=== PATIENT | female | born 1955 | race Caucasian/White ===

== ENCOUNTER 2023-04-24 14:24 | Emergency (ER) | payer MEDICARE, SELFPAY ==
[2023-04-24] VITALS (72 sets, daily range): BP systolic 140–172; BP diastolic 72–102; PULSE 66–97; RESP 13–30; TEMP 36.3–36.7; O2SAT 96–100; BMI 19.2
--- NOTE | 2023-04-24 14:27 | DI.RAD.S_ITS ---
PROCEDURE: XR WRIST LT MIN 3V INDICATIONS: slip/fall, deformity to L wrist TECHNIQUE: 3 views of the wrist were acquired. COMPARISON: None. FINDINGS: Bones: Intra-articular radial styloid fracture with apex dorsal angulation. Scaphoid view: Not requested. Soft tissues: No suspicious soft tissue calcifications. IMPRESSION: Intra-articular, angulated radial styloid fracture. Dictated by: Scott Ochoa M.D. on 04/24/2023 at 14:56 Approved by: Scott Ochoa M.D. on 04/24/2023 at 14:57
[2023-04-24] MEDS: MORPHINE 4 MG/ML INJ IV (16:01)
--- NOTE | 2023-04-24 18:35 | ED_ITS ---
HPI - General Adult General Chief complaint: Trauma Stated complaint: GLF Time Seen by Provider: 04/24/23 18:01 Source: patient and EMS Mode of arrival: EMS Limitations: no limitations History of Present Illness HPI narrative: Patient is a 67-year-old female who arrives for evaluation of a left wrist she states she tripped and on an outstretched hand. Had immediate pain in the left wrist. No other injuries from the event. Almost immediately after where she had a presyncopal episode because of the discomfort. She is not on anticoagulation. Related Data Previous Rx's Medication Instructions Recorded hydrocodone 5 mg-acetaminophen 325 1 tab PO Q4-6H PRN pain #20 tabs 04/24/23 mg tablet Allergies Allergy/AdvReac Type Severity Reaction Status Date / Time Penicillins [PENICILLINS] Allergy Mild Verified 04/24/23 14:29 Review of Systems Constitutional Constitutional: Reports system reviewed and no additional complaints, except as documented Musculoskeletal Musculoskeletal: Reports system reviewed and no additional complaints, except as documented Integumentary/Breasts Skin/Breast: Reports system reviewed and no additional complaints, except as documented Neurologic Neurologic: Reports system reviewed and no additional complaints, except as documented Hematologic/Lymphatic On Anticoagulants: No Patient History Social History Smoking Status: Never smoker Smoking Status: Never smoker alcohol intake frequency: 0-2 drinks per day Substance Use Type: does not use Exam Initial Vital Signs Initial Vital Signs: Vital Signs Temperature 98.1 F 04/24/23 14:24 Pulse Rate 68 04/24/23 14:24 Respiratory Rate 14 04/24/23 14:24 Blood Pressure 156/72 H 04/24/23 14:24 Pulse Oximetry 99 04/24/23 14:24 Oxygen Delivery Method Room Air 04/24/23 14:24 HENNM Head: normal to inspection and normocephalic Cardio Pulses: radial pulses present on the left Skin General: no rashes or lesions noted Neuro Sensory Exam: no sensory deficits noted Extrem Other: Obvious deformity to left wrist. Left elbow and left shoulder unremarkable. Other musculoskeletal exam is unremarkable. Procedures Orthopedic Fracture Reduction Fracture #1: Time Out Performed: Yes Side: left Fracture Reduction Location: radius and ulna Analgesia: procedural sedation Technique: direct manipulation Post Reduction X-rays Demonstrate: acceptable reduction Post-reduction neuro exam: no change Post-reduction vascular exam: no change Splint Applied: Yes Patient Tolerated Procedure: Well Orthopedic Splinting/Casting Injury #1: Side: left Upper Extremity Injury Location: forearm Upper Extremity Immobilizer: sugar tong splint Other Orthopedic Equipment: other (Sling) Post splinting neuro exam: no change Post splinting vascular exam: no change Placed by: Provider Procedural Sedation Consent signed: Yes Time out performed: Yes Indication: fracture/dislocation reduction ASA Class: II Mallampati Airway Classification: Class II Preparation: waterproof bag sewer applied, pulse oximeter, capnometry used, supplemental O2 applied, suction/airway equipment at bedside and IV secured IV Propofol dose (mg): 70 Intraservice time/total sedation time (min): 15 ED Sedation Level: Moderate (Concious) Patient Tolerated Procedure: Well Complications: none Course Orders Ordered: ED Orders 04/24/23 20:03 XR wrist LT min 3V Stat Discontinued Medications Hydrocodone Bitart/Acetaminophen (Hydrocodone/Acet 5/325 Prepack) 1 bottle MISC SEEINSTR ONE Stop: 04/24/23 20:48 Last Admin: 04/24/23 20:55 Dose: 1 bottle Documented By: MOY Sodium Chloride (Normal Saline 0.9%) 1,000 mls @ 125 mls/hr IV CONT MARIA G Last Infusion: 04/24/23 21:18 Dose: 0 mls/hr Documented By: Admin: 04/24/23 19:20 Dose: 125 mls/hr Documented By: LYN Morphine Sulfate (Morphine 4 Mg/Ml Inj) 4 mg IV NOW ONE Stop: 04/24/23 15:56 Last Admin: 04/24/23 16:01 Dose: 4 mg Documented By: LYN Ondansetron HCl (Ondansetron 4 Mg/2 Ml Inj) 4 mg IV NOW ONE Stop: 04/24/23 19:13 Last Admin: 04/24/23 19:20 Dose: 4 mg Documented By: LYN Propofol (Propofol 200 Mg/20 Ml Vial) 100 mg IV NOW ONE Stop: 04/24/23 18:37 Last Admin: 04/24/23 20:29 Dose: 70 mg Documented By: MYO Vital Signs Vital signs: Vital Signs - 8 hr 04/24/23 17:30 04/24/23 17:30 04/24/23 18:00 Temperature Pulse Rate 76 Respiratory Rate 22 Blood Pressure 142/85 H 155/88 H Pulse Oximetry 100 Oxygen Flow Rate 04/24/23 18:00 04/24/23 18:30 04/24/23 18:30 Temperature Pulse Rate 76 79 Respiratory Rate 18 18 Blood Pressure 140/84 Pulse Oximetry 97 97 Oxygen Flow Rate 04/24/23 19:00 04/24/23 19:01 04/24/23 19:01 Temperature Pulse Rate 78 79 Respiratory Rate 19 20 Blood Pressure 165/90 H Pulse Oximetry 99 98 Oxygen Flow Rate 04/24/23 19:34 04/24/23 19:30 04/24/23 19:30 Temperature 97.7 F Pulse Rate 88 82 Respiratory Rate 16 17 Blood Pressure 160/96 H 172/92 H Pulse Oximetry 99 100 Oxygen Flow Rate 0 04/24/23 19:40 04/24/23 19:40 04/24/23 19:45 Temperature Pulse Rate 85 Respiratory Rate 15 Blood Pressure 169/93 H 160/91 H Pulse Oximetry 99 Oxygen Flow Rate 04/24/23 19:45 04/24/23 19:50 04/24/23 19:50 Temperature Pulse Rate 84 85 Respiratory Rate 15 17 Blood Pressure 167/92 H Pulse Oximetry 99 99 Oxygen Flow Rate 04/24/23 19:55 04/24/23 19:55 04/24/23 19:56 Temperature Pulse Rate 92 H Respiratory Rate 16 Blood Pressure 160/96 H 160/96 H Pulse Oximetry 100 Oxygen Flow Rate 04/24/23 19:56 04/24/23 20:00 04/24/23 20:00 Temperature Pulse Rate 88 80 Respiratory Rate 22 20 Blood Pressure 167/102 H Pulse Oximetry 99 98 Oxygen Flow Rate 04/24/23 20:05 04/24/23 20:05 04/24/23 17:35 Temperature Pulse Rate 82 76 Respiratory Rate 21 16 Blood Pressure 163/101 H Pulse Oximetry 97 99 Oxygen Flow Rate 04/24/23 17:40 04/24/23 17:45 04/24/23 17:50 Temperature Pulse Rate 77 76 76 Respiratory Rate 23 21 16 Blood Pressure Pulse Oximetry 98 99 98 Oxygen Flow Rate 04/24/23 17:55 04/24/23 18:05 04/24/23 18:10 Temperature Pulse Rate 74 75 77 Respiratory Rate 15 13 15 Blood Pressure Pulse Oximetry 97 97 97 Oxygen Flow Rate 04/24/23 18:15 04/24/23 18:20 04/24/23 18:25 Temperature Pulse Rate 79 77 80 Respiratory Rate 18 13 14 Blood Pressure Pulse Oximetry 97 96 96 Oxygen Flow Rate 04/24/23 18:35 04/24/23 18:40 04/24/23 18:45 Temperature Pulse Rate 78 76 75 Respiratory Rate 20 17 14 Blood Pressure Pulse Oximetry 99 97 98 Oxygen Flow Rate 04/24/23 18:50 04/24/23 18:55 04/24/23 19:05 Temperature Pulse Rate 77 77 79 Respiratory Rate 17 16 24 Blood Pressure Pulse Oximetry 98 97 98 Oxygen Flow Rate 04/24/23 19:10 04/24/23 19:15 04/24/23 19:20 Temperature Pulse Rate 77 97 H 81 Respiratory Rate 21 28 H 25 H Blood Pressure Pulse Oximetry 98 97 99 Oxygen Flow Rate 04/24/23 19:25 04/24/23 19:35 04/24/23 20:10 Temperature 97.3 F L Pulse Rate 81 84 80 Respiratory Rate 30 H 20 17 Blood Pressure 163/91 H Pulse Oximetry 100 100 99 Oxygen Flow Rate 0 04/24/23 20:15 04/24/23 20:20 04/24/23 20:05 Temperature Pulse Rate 82 82 78 Respiratory Rate 20 15 20 Blood Pressure Pulse Oximetry 99 100 Oxygen Flow Rate 04/24/23 20:30 04/24/23 20:30 Temperature Pulse Rate 82 Respiratory Rate 15 Blood Pressure 171/87 H Pulse Oximetry 99 Oxygen Flow Rate Medical Decision Making Lab Data Labs: Point of Care Testing Test Results Not applicable Point of care testing: Point of Care Testing Test Results Not applicable Imaging Data Extremity x-ray #1: Radiologist's Impression: PROCEDURE:? XR WRIST LT MIN 3V ? INDICATIONS: slip/fall, deformity to L wrist ? TECHNIQUE:? 3 views of the wrist were acquired.? ? COMPARISON:? None. ? FINDINGS:? ? Bones:? Intra-articular radial styloid fracture with apex dorsal angulation. ? Scaphoid view:? Not requested. ? Soft tissues:? No suspicious soft tissue calcifications.? ? IMPRESSION:? Intra-articular, angulated radial styloid fracture. Extremity x-ray #2: Radiologist's Impression: PROCEDURE:? XR WRIST LT MIN 3V ? INDICATIONS: post reduction and splint placement ? TECHNIQUE:? 3 views of the wrist were acquired.? ? COMPARISON:? [facility], CR, XR WRIST LT MIN 3V, 04/24/2023, 14:38. ? FINDINGS:? ? Bones:? There is improved alignment status post closed reduction of the previously described comminuted distal radius fracture with decreased impaction and dorsal angulation.? Fracture involvement of the radiocarpal and distal radioulnar joints again noted. ? Soft tissues:? There is an external cast limiting evaluation of fine bony and soft-tissue detail. ? IMPRESSION:? ? 1.? Improved alignment status post closed reduction of comminuted distal radius fracture. MDM Narrative Medical decision making narrative: Obvious left wrist fracture. Neurovascularly intact. Sedated and reduced with splint plate spent as described above. Discharge patient home with instructions for follow-up with Orthopedic surgery. She was given care instructions and return precautions it she expressed understanding and agreement. Discharge Plan Departure Patient Disposition: Home Clinical Impression: Left wrist fracture Instructions: How to Use a Sling, DI for Wrist Fracture, How to Take Care of Your Splint Activity Restrictions/Additional Instructions: The splint that was placed today does need to be treated like a cast. You need to keep it on and keep it clean and keep it dry. On Thursday contact the orthopedic doctors of the number provided below for a follow-up. Prescriptions: New hydrocodone-acetaminophen 5-325 mg tablet 1 tab PO Q4-6H PRN (Reason: pain) Qty: 20 0RF Referrals: Ziyad Freed MD [Primary Care Provider] - Mine Rios MD [Physician] - Stand Alone Forms: Patient Portal/API
[2023-04-24] MEDS: SODIUM CHLORIDE 0.9% 1,000 ML 125 ML IV (19:20)
[2023-04-24] MEDS: ONDANSETRON 4 MG/2 ML INJ IV (19:20)
--- NOTE | 2023-04-24 20:03 | DI.RAD.S_ITS ---
PROCEDURE: XR WRIST LT MIN 3V INDICATIONS: post reduction and splint placement TECHNIQUE: 3 views of the wrist were acquired. COMPARISON: [facility], CR, XR WRIST LT MIN 3V, 04/24/2023, 14:38. FINDINGS: Bones: There is improved alignment status post closed reduction of the previously described comminuted distal radius fracture with decreased impaction and dorsal angulation. Fracture involvement of the radiocarpal and distal radioulnar joints again noted. Soft tissues: There is an external cast limiting evaluation of fine bony and soft-tissue detail. IMPRESSION: 1. Improved alignment status post closed reduction of comminuted distal radius fracture. Dictated by: Ronen Ventura M.D. on 04/24/2023 at 21:31 Approved by: Ronen Ventura M.D. on 04/24/2023 at 21:36
[2023-04-24] MEDS: propofoL 200 MG/20 ML VIAL 100 MG IV (20:29)
[2023-04-24] MEDS: HYDROCODONE/ACET 5/325 PREPACK 1 BOTTLE MISC (20:55)
== END 2023-04-24 21:24 | disposition home or self-care (01) ==
PROVIDERS: Emergency Provider Emergency Medicine; Family Provider Family Medicine; PCP Family Medicine
DX: S52.502A Unspecified fracture of the lower end of left radius, initial encounter for closed fracture (principal); W01.0XXA Fall on same level from slipping, tripping and stumbling without subsequent striking against object, initial encounter
CPT/HCPCS: 25605; 29125; 73110; 96361; 96374; 96375; 99152; 99284; 99285; J2270; J2405; J2704

== ENCOUNTER 2023-05-28 10:01 | Day surgery (SDC) | payer MEDICARE, SELFPAY ==
[2023-05-20 11:26] VITALS: BMI 19.1
[2023-05-28] VITALS (13 sets, daily range): BP systolic 139–179; BP diastolic 40–96; PULSE 78–96; RESP 10–16; TEMP 36.2–36.5; O2SAT 92–100; BMI 19.2
[2023-05-28] MEDS: LACTATED RINGERS 1,000 ML 42 ML IV ×2 (10:35→15:01)
--- NOTE | 2023-05-28 12:31 | PM.PREOP ---
Pre-operative Note Interval Note History & Physical reviewed/Exam performed by Physician: Yes Changes to H&P: No
[2023-05-28] MEDS: CEFAZOLIN 2 GM/100 ML PREMIX 100 ML IV (12:37)
--- NOTE | 2023-05-28 12:59 | SUR.OPER ---
Supine on padded OR bed, head on pillow, left secured on padded arm board at <90 degrees abduction, right arm wrapped in gel and tucked against body , legs uncrossed, safety belt at thigh, tape over blanket over lower legs.
[2023-05-28] MEDS: BUPIVACAINE 0.25% (PF) 30 ML, EPINEPHrine 0.15 MG INJ (13:03)
--- NOTE | 2023-05-28 14:14 | P.OP_ITS ---
Operative Date/Time/Diagnoses Date of procedure: 05/28/23 Time of procedure: 13:00 Pre-op diagnosis: Left distal radius fracture Post-op diagnosis: same Procedure & Clinicians Procedure: Removal of previous implant followed by repeat open reduction and internal fixation Same procedure as scheduled: Yes Indications: Patient is status post open reduction internal fixation of a distal radius fracture with signs of implant loosening. Surgeon: Adalberto Peralta Short Order Cook: Yoana Jackson Anesthesia Type: General Operative Notes Findings: Signs of the distal aspect of the plate pulling away from the distal radius. The radial styloid bone was quite soft but the volar ulnar corner had much stronger bone Closure Type: primary Applied: implant(s) (Previous Accu Med plate was removed. Volar ulnar plate was placed followed by a radial styloid plate) Estimated Blood Loss (mL): 5 Procedure in detail: On date of service, patient was met in the holding area where the operative site was signed and witnessed by the OR staff. The surgery was once again discussed with the patient and any remaining questions or concerns were answered to the patient's full satisfaction. Time-out was performed verifying patient's name procedure and operative site. Patient was taken back to the operating theater and placed on the operating table in a supine position. Great care was taken to ensure that all bony prominences were appropriately padded. Well-padded tourniquet was placed up along the upper extremity. Another time-out was performed verifying patient's name, procedure, and operative site. The upper extremity was then prepped and draped in the normal sterile fashion. Esmarch was used to exsanguinate the limb and the tourniquet was turned up to 250 mm of mercury. Fifteen blade was used to expose the distal radius. An incision was made over the previous incision. The FCR tendon was retracted and the floor of the tendon was opened with a 15 blade. The FPL tendon and muscle belly was retracted ulnarly giving us good visualization of the plate. Periosteal elevator was used to remove any scarring over the plate and then the plate was removed as well as the screws. Plate and screws came out without any difficulty. As mentioned above the bone in the radial styloid was very soft and the screws just pulled straight out where the bone in the volar ulnar corner were providing much better overall fixation. Next the brachia radialis attachment to the radial styloid wa s released to help with overall reduction. Retractors were placed allowing us good visualization of the distal radius as well as the shaft. Due to the poor bony quality of the radial styloid a volar ulnar plate was placed allowing us to get fixation of the distal radius fracture. After the plate was fixated this helped secure the ulnar column but there was still significant amount of motion at the radial column. Radial styloid plate was then placed. Due to the poor bony quality only 1 distal screw was able to be placed but the styloid plate was able to act like a buttress securing the radial styloid into place. Final x- rays were obtained verifying overall reduction and plate and screw positioning. The wound was copiously irrigated and closed in a layered fashion. The wrist and hand were cleaned dried dressed. Patient was placed into a splint and taken to the PACU in stable condition. Complications: none Post-operative Condition: stable Disposition: PACU Plan for aftercare: Patient will follow our postoperative protocol for open reduction internal fixation of a distal radius fracture
[2023-05-28] MEDS: HYDROMORPHONE 2 MG INJ IV ×4 (14:50→15:04)
[2023-05-28] MEDS: OXYCODONE IR 5 MG TABLET PO (15:07)
[2023-05-28] MEDS: ONDANSETRON 4 MG/2 ML INJ IV (15:28)
--- NOTE | 2023-05-28 15:55 | SUR.PHASEII ---
Patient had 50ml clear emesis. Patient diaphoretic and a bit pale. Notified Dr. Brito of findings. Awaiting order for antiemetic.
[2023-05-28] MEDS: METOCLOPRAMIDE 10 MG/2 ML INJ IV (16:02)
--- NOTE | 2023-05-28 16:08 | SUR.PHASEII ---
Patient actively vomiting even after Reglan; notified Dr Alex Brito of continued emesis. Okay to give scopolamine patch. VSS.
[2023-05-28] MEDS: SCOPOLAMINE 1 PATCH TOP (16:21)
[2023-05-28] MEDS: LORazepam 2 MG/ML INJ 0.25 MG IV (17:03)
--- NOTE | 2023-05-28 17:08 | SUR.PHASEII ---
Nausea/Vomiting IV reglan was given as ordered for nausea. Scopalomine patch also placed. With slightest movement, patient still begins to wretch. Notified Dr. Brito of findings. Received order for IV ativan. Dr. Brito to evaluate patient shortly. IV ativan given as ordered.
[2023-05-28] MEDS: hydrOXYzine 50 MG/ML INJ 25 MG IM (18:07)
== END 2023-05-28 18:21 | disposition home or self-care (01) ==
PROVIDERS: Family Provider Family Medicine; PCP Family Medicine; Referring Provider Orthopaedic Surgery; Visit Provider Orthopaedic Surgery
PROC: (CPT 25608; principal; 2023-05-28 11:45)
DX: T84.12 Displacement of internal fixation device of bones of limb (principal); S52.572G Other intraarticular fracture of lower end of left radius, subsequent encounter for closed fracture with delayed healing
CPT/HCPCS: 25608; J0171; J0690; J1100; J1170; J2060; J2250; J2405; J2704; J2765; J3010; J3410